=== PATIENT | male | born 1940 | race Caucasian/White ===

== ENCOUNTER 2020-12-16 12:48 | Emergency (ER) | payer MEDICARE, MEDICAID ==
[2020-12-16] MEDS ORDERED: Sodium Chloride 0.9% 10 ML Syringe FLUSH PRN (13:09)
[2020-12-16] MEDS ORDERED: Diltiazem 50 MG/10 ML SDV IVPUSH ONE (13:10)
[2020-12-16] MEDS ORDERED: Sodium Chloride 0.9% 1,000 ML IV ONE (13:10)
[2020-12-16 13:42] LABS: CHLORIDE,CL 97 mmol/L (98-107); SODIUM,NA 131 mmol/L (136-145)
[2020-12-16 13:55] LABS: ANION GAP 12.2 mmol/L (5-15)
--- NOTE | 2020-12-16 14:13 | EDM.PDOC ---
ED HPI GENERAL MEDICAL PROBLEM - General Chief Complaint: General Stated Complaint: ER Time Seen by Provider: 12/16/20 12:48 Source of Information: Reports: EMS History Limitations: Reports: Physical Impairment - History of Present Illness INITIAL COMMENTS - FREE TEXT/NARRATIVE: Patient comes into the emergency department by EMS for complaints of low pulse rate. Patient was at the dining table and became weak and diaphoretic at the lunch table and staff were having difficulty maintaining patient's consciousness. They took him back to his bed and called 911. By the time EMS was on scene they were able to follow monitor him and state that the patient was alert and oriented and heart rate was in the 60s. Patient was transported by ambulance. Patient denies any pain or discomfort. Patient's cognition at baseline is confused at times. He has no major concerns or complaint. Onset: Sudden Duration: Other Location: Reports: Other Quality: Reports: Other Severity: Mild Context: Reports: Other Associated Symptoms: Reports: Malaise, Syncope - Related Data Allergies Allergy/AdvReac Type Severity Reaction Status Date / Time No Known Allergies Allergy Verified 12/16/20 13:32 ED ROS GENERAL - Review of Systems Review Of Systems: Comprehensive ROS is negative, except as noted in HPI. Constitutional: Reports: Fatigue, Decreased Appetite HEENT: Reports: No Symptoms Respiratory: Reports: No Symptoms Cardiovascular: Reports: No Symptoms Endocrine: Reports: No Symptoms GI/Abdominal: Reports: No Symptoms : Reports: No Symptoms Musculoskeletal: Reports: No Symptoms Skin: Reports: No Symptoms Neurological: Reports: Weakness Psychiatric: Reports: No Symptoms Hematologic/Lymphatic: Reports: No Symptoms Immunologic: Reports: No Symptoms ED EXAM, GENERAL - Physical Exam Exam: See Below Exam Limited By: Physical Impairment General Appearance: Alert, WD/WN, No Apparent Distress Eye Exam: Bilateral Eye: EOMI, PERRL Head: Atraumatic, Normocephalic Neck: Normal Inspection, Supple, Non-Tender, Full Range of Motion Respiratory/Chest: No Respiratory Distress, Lungs Clear, Normal Breath Sounds, No Accessory Muscle Use, Chest Non-Tender Cardiovascular: Tachycardia, Irregularly Irregular GI/Abdominal: Normal Bowel Sounds, Soft, Non-Tender, No Distention, No Abnormal Bruit Back Exam: Normal Inspection, Full Range of Motion Extremities: Normal Inspection, Normal Range of Motion, Non-Tender, No Pedal Edema, Normal Capillary Refill Neurological: Alert Psychiatric: Normal Affect, Normal Mood Skin Exam: Warm, Normal Color Course - Vital Signs Last Recorded V/S: Last Vital Signs Temp Pulse 135 H 12/16/20 13:33 Resp 16 12/16/20 13:33 BP 111/61 12/16/20 13:33 Pulse Ox 98 12/16/20 13:33 - Orders/Labs/Meds Orders: Active Orders 24 hr Category Date Time Status Sodium Chloride 0.9% [Saline Flush] Med 12/16/20 13:09 Active 10 ml FLUSH ASDIRECTED PRN Peripheral IV Insertion Adult [OM.PC] Stat Oth 12/16/20 13:09 Ordered Medication Orders Sodium Chloride (Sodium Chloride 0.9% 10 Ml Syringe) 10 ml FLUSH ASDIRECTED PRN PRN Reason: Keep Vein Open Labs: Laboratory Tests 12/16/20 12/16/20 12/16/20 Range/Units 13:20 13:20 13:20 WBC 7.7 (4.0-10.0) x10^3/uL RBC 4.90 (4.5-6.0) x10^6/uL Hgb 15.1 (14.0-18.0) g/dL Hct 41.4 (40.0-52.0) % MCV 84.5 (78.0-93.0) fL MCH 30.8 (26.0-32.0) pg MCHC 36.5 H (32.0-36.0) g/dL RDW Coeff of Jose Luis 12.8 (10.0-15.0) % Plt Count 241 (130-400) x10^3/uL Neut % (Auto) 48.9 L (50.0-80.0) % Lymph % (Auto) 40.5 (25.0-50.0) % Jerome % (Auto) 9.2 (2.0-11.0) % Eos % (Auto) 1.0 (0.0-4.0) % Baso % (Auto) 0.4 (0.2-1.2) % PT 11.5 (9.9-12.5) SEC INR 1.0 L (2.0-3.5) Sodium 131 L (136-145) mmol/L Potassium 3.2 L (3.5-5.1) mmol/L Chloride 97 L (98-107) mmol/L Carbon Dioxide 25 (21-32) mmol/L Anion Gap 12.2 (5-15) mmol/L BUN 16 (7-18) mg/dL Creatinine 1.0 (0.70-1.30) mg/dL Est Cr Clr Drug Dosing TNP Estimated GFR (MDRD) > 60 Glucose 121 H (70-99) mg/dL Lactic Acid (0.4-2.0) mmol/L Calcium 8.9 (8.5-10.1) mg/dL Corrected Calcium 9.1 (8.5-10.1) mg/dL Total Bilirubin 1.3 H (0.2-1.0) mg/dL AST 16 (15-37) U/L ALT 17 (16-63) U/L Alkaline Phosphatase 66 (46-116) U/L Troponin I High Sens 35 (<=76) ng/L Total Protein 7.4 (6.4-8.2) g/dL Albumin 3.7 (3.4-5.0) g/dL Globulin 3.7 Albumin/Globulin Ratio 1.00 // Range/Units 13:20 WBC (4.0-10.0) x10^3/uL RBC (4.5-6.0) x10^6/uL Hgb (14.0-18.0) g/dL Hct (40.0-52.0) % MCV (78.0-93.0) fL MCH (26.0-32.0) pg MCHC (32.0-36.0) g/dL RDW Coeff of Jose Luis (10.0-15.0) % Plt Count (130-400) x10^3/uL Neut % (Auto) (50.0-80.0) % Lymph % (Auto) (25.0-50.0) % Jerome % (Auto) (2.0-11.0) % Eos % (Auto) (0.0-4.0) % Baso % (Auto) (0.2-1.2) % PT (9.9-12.5) SEC INR (2.0-3.5) Sodium (136-145) mmol/L Potassium (3.5-5.1) mmol/L Chloride (98-107) mmol/L Carbon Dioxide (21-32) mmol/L Anion Gap (5-15) mmol/L BUN (7-18) mg/dL Creatinine (0.70-1.30) mg/dL Est Cr Clr Drug Dosing Estimated GFR (MDRD) Glucose (70-99) mg/dL Lactic Acid 2.0 (0.4-2.0) mmol/L Calcium (8.5-10.1) mg/dL Corrected Calcium (8.5-10.1) mg/dL Total Bilirubin (0.2-1.0) mg/dL AST (15-37) U/L ALT (16-63) U/L Alkaline Phosphatase (46-116) U/L Troponin I High Sens (<=76) ng/L Total Protein (6.4-8.2) g/dL Albumin (3.4-5.0) g/dL Globulin Albumin/Globulin Ratio Meds: Medications Generic Name Dose Route Start Last Admin Trade Name Freq PRN Reason Stop Dose Admin Sodium Chloride 10 ml 12/16/20 13:09 Sodium Chloride 0.9% 10 Ml Syringe FLUSH ASDIRECTED PRN Keep Vein Open Discontinued Medications Generic Name Dose Route Start Last Admin Trade Name Freq PRN Reason Stop Dose Admin Diltiazem HCl 20 mg 12/16/20 13:10 12/16/20 13:33 Diltiazem 50 Mg/10 Ml Sdv IVPUSH 12/16/20 13:11 20 mg ONETIME ONE Administration Sodium Chloride 1,000 mls @ 1,000 mls/hr 12/16/20 13:10 12/16/20 13:33 Normal Saline IV 12/16/20 14:09 1,000 mls/hr ONETIME ONE Administration Departure - Departure Time of Disposition: 14:15 Disposition: DC/Tfer to SNF 03 Condition: Good Clinical Impression: Rapid atrial fibrillation - Discharge Information *PRESCRIPTION DRUG MONITORING PROGRAM REVIEWED*: Not Applicable *COPY OF PRESCRIPTION DRUG MONITORING REPORT IN PATIENT SADIE: Not Applicable Instructions: Atrial Fibrillation, [id number] Forms: ED Department Discharge Additional Instructions: 1. rest 2. increase your water intake 3. Continue all at home medications 4. Activity and diet as tolerated 5. Can take over the counter Tylenol for any pain or discomfort 6. Follow up with PCP if symptoms continue, return, or progress 7. Call with any questions or concerns Sepsis Event Note (ED) - Evaluation Sepsis Screening Result: No Definite Risk - Focused Exam Vital Signs: Vital Signs Pulse Resp BP Pulse Ox 12/16/20 13:33 135 H 16 111/61 98 - My Orders Last 24 Hours: My Active Orders 12/16/20 13:09 Sodium Chloride 0.9% [Saline Flush] 10 ml FLUSH ASDIRECTED PRN Peripheral IV Insertion Adult [OM.PC] Stat - Assessment/Plan Last 24 Hours: My Active Orders 12/16/20 13:09 Sodium Chloride 0.9% [Saline Flush] 10 ml FLUSH ASDIRECTED PRN Peripheral IV Insertion Adult [OM.PC] Stat Assessment:: 1. rapid a.fib Plan: 1. Labs completed in the ER. Results reviewed with the patient 2. IV initiated in the emergency department 3. IV fluids provided 4. Cardizem given in ER 5. Patient is a DNR code 3. he will be sent back home to rest today. His heart rate is within normal limits and patient is resting with no complaints. Labs negative 6. Patient and nursing staff was updated regarding the plan of care 7. Education provided the patient regarding activity, diet, rest, [id number] medication modalities, and follow-up care was provided 8. Patient and family are agreeable to the above plan of care 9. All questions and concerns were addressed with the patient and family prior to discharge
== END 2020-12-16 16:00 ==
LOC: VM.ED 12:48
DX: I48.91 Unspecified atrial fibrillation (principal)
CPT/HCPCS: 80053; 83605; 84484; 85025; 85610; 96374; 99284; 99285-25; J3490; J7030